=== PATIENT | female | born 1990 | race Caucasian/White ===

== ENCOUNTER → 2018-02-12 19:55 | Outpatient (CLI) | END | disposition home or self-care (01) ==

== ENCOUNTER 2018-03-14 17:17 | Outpatient (CLI) | END 2018-03-14 20:35 | disposition home or self-care (01) ==

== ENCOUNTER 2018-03-15 06:30 | Inpatient (IN) | END 2018-03-17 16:40 | disposition home or self-care (01) | DRG 775 ==